=== PATIENT | female | born 1995 | race Caucasian/White ===

== ENCOUNTER 2019-06-03 19:59 | Emergency (ER) | payer BC ==
[~2019-06-03] VITALS: Ht 170.2 cm; Wt 54.4 kg
[2019-06-03] MEDS ORDERED: NORCO 5-325 TA1 EAC1 PO (22:11)
[2019-06-03 22:54] VITALS: BP 154/93
== END 2019-06-03 23:00 | disposition home or self-care (01) ==
LOC: ER 19:59
DX: S42.302A Unspecified fracture of shaft of humerus, left arm, initial encounter for closed fracture (principal); V80.010A Animal-rider injured by fall from or being thrown from horse in noncollision accident, initial encounter; Y92.89 Other specified places as the place of occurrence of the external cause; Y93.89 Activity, other specified; Y99.8 Other external cause status